=== PATIENT | female | born 1985 | race Caucasian/White ===

== ENCOUNTER 2016-11-18 13:10 | Emergency (ER) | payer OTHER ==
[~2016-11-18] VITALS: Ht 162.6 cm; Wt 72.7 kg
[~2016-11-18 13:10] MED LIST: ALBU8.5H2 INHALATION; BECL8.7A6 IH; DULO30CA PO; LEVO200T6 PO
[2016-11-18 13:11] VITALS: BP 113/75; RESP 15; O2SAT 95
--- NOTE | 2016-11-18 13:59 | ED.REPORT ---
HPI-Facial Injury Date of Service Nov 18, 2016 ED Provider: He Brock DO 31 year old female presents to the ER due to a recurrent nose bleed. Pt has had multiple nose bleeds in the past. Pt was seen last night at urgent care for this and had a packing placed. She was told to follow up with ENT, but has been unable to set up an ENT appointment. She now reports pain in the area of packing , R sided headache. Last night she had intermittent blood going down the back of the throat with no recurrence today. Pt denies fever, vomiting and facial swelling. Nursing Notes Stated Complaint: SWOLLEN FACE/NAUSEA Chief Complaint: ENT & Mouth Nursing Notes Reviewed: Yes Allergies: Coded Allergies: hydrocodone (Verified Adverse Reaction, Intermediate, "guaman", 11/18/16) Scheduled Amoxicillin/Clav K 875-125 mg (Augmentin 875-125 mg) 1 Each Tablet 1 TABLET PO BID Beclomethasone Dipropionate (Qvar) 8.7 Gm Aer.w.adap 8.7 GM IH BID Duloxetine (Cymbalta) 30 Mg Capsule.dr 30 MG PO DAILY Levothyroxine (Levothyroxine) 200 Mcg Tablet 225 MCG PO DAILY Scheduled PRN Albuterol HFA (Proair HFA) 8.5 Gm Hfa.aer.ad 2 PUFFS INHALATION Q4H PRN PRN For Shortness of Breath Tramadol (Tramadol) 50 Mg Tablet 50 MG PO Q4H PRN PRN For Pain General Time Seen by Provider: 13:58 Chief Complaint Nose bleed Hx Obtained From: Patient Arrived By: Walk-in Onset Occurred: Yesterday Location: : Nose Quality: Painful Severity: Current: Moderate Associated with: Reports: Headache, Denies: Shortness of breath, Vomiting Past Medical History Past Medical History Notes: PCP: Dr. Rodriguez Past Medical History GERD Hyperthyroid Anxiety Depression Past Surgical History Reports: Appendectomy, Hysterectomy Family History Noncontributory Smoking History Former Smoker Social History Alcohol Use: "Social" Drug Use: THC Other Social History: Local resident Ambulatory Status Independent Review of Systems Basic Review of Systems Respiratory: No shortness of breath, No cough, No wheeze Cardiovascular: No chest pain, No dyspnea on exertion, No orthopnea, No parox noct dyspnea, No palpitations Psychiatric: Normal thought content Constitutional: Denies: Fever Ears / Nose / Throat: Reports: Nose bleeding Neurologic: Reports: Headache Complete sys rev & neg: except as marked. GI: Reports: Nausea Physical Exam Initial Vital Signs Vital Signs (First) Date Time Temp Pulse Resp B/P Pulse Ox O2 Delivery O2 Flow Rate FiO2 11/18/16 13:11 36.4 77 15 113/75 95 Room Air Initial VS: Reviewed General/Constitutional: Well-developed, Well-nourished Respiratory: Breath sounds normal, Clear to auscultation, No respiratory distress Cardiovascular: Regular rate & rhythm, Heart sounds normal, Intact distal pulses Extremities: Vascular intact, Neuro intact Skin: Warm, Dry, No cyanosis Psychiatric: Mood/affect normal, Behavior normal, Normal thought content Head / Eyes: Atraumatic, Normocephalic, PERRL No blood in oropharynx. Face normal, normal symmetry. Neck: Supple, Full range of motion Neurologic: Oriented X3, Speech NL, No motor deficits Re-Eval/Medical Decision Med Decision/Clinical Course Med Decision/Clinical Course: Overall no persistent nosebleed and overall no complication such as toxic shock or soft tissue infection related to the nasal packing placement. It sounds generally like there was a miscommunication of appropriate follow-up, she will have follow-up in approximately 4-5 days with an ENT, this seems reasonable, will place her on Augmentin and tramadol in order to manage pain and prevent toxic shock syndrome. Strict return and follow-up precautions are given. Re-Evaluation/Progress : Time of Eval: 15:00 Re-Evaluation/Progress Note: Discussed plan for discharge and follow up. All questions addressed. Counseled Regarding: Diagnosis, Need for follow-up, When/why to return to ED Discharge & Departure Impression: Primary Impression: Epistaxis Disposition: Home Discharge Condition All VS Reviewed: Yes Condition: Improved Patient Instructions: Epistaxis (ED) Text / Dict Instructions: Take Augmentin and tramadol as prescribed. Use Tylenol around the clock. Call an ear nose and throat doctor today for follow-up within the next 3-4 days. Return to ER if you develop persistent nosebleeding, high fever, significant facial swelling, or other concerns. Referrals: Jean Pak MD, Tabitha MD [place] Attestation Portions of this note were transcribed by Maryann Guaman. I, (Dr. He Brock ) personally performed the history, physical exam and medical decision-making; I reviewed and confirmed the accuracy of the information in the transcribed note. Signed by: Maryann Guaman. Javed, 11/18/2016, [id number] copies to: Jean Pak MD; Rafaela Ramírez MD, Timothy S DO Nov 18, 2016 13:59 Maryann Guaman Nov 18, 2016 14:48
[2016-11-18] MEDS ORDERED: AMOX-366 PO (14:48)
[2016-11-18] MEDS ORDERED: TRAM50TA2 PO (14:48)
[2016-11-18 14:53] VITALS: BP 104/66; PULSE 62; RESP 16; O2SAT 100
[2016-11-18 15:02] VITALS: BP 104/66; PULSE 62; RESP 16; O2SAT 100
== END 2016-11-18 15:04 | disposition home or self-care (01) ==
LOC: SED 13:10
DX: R04.0 Epistaxis (principal); K21.9 Gastro-esophageal reflux disease without esophagitis; E05.90 Thyrotoxicosis, unspecified without thyrotoxic crisis or storm; Z87.891 Personal history of nicotine dependence; Z88.5 Allergy status to narcotic agent

== ENCOUNTER 2016-12-23 10:36 | Emergency (ER) | payer OTHER ==
[~2016-12-23] VITALS: Ht 162.6 cm; Wt 72.7 kg
[~2016-12-23 10:36] MED LIST changes: +AMOX-366 PO; +TRAM50TA2 PO
[2016-12-23 10:42] VITALS: BP 118/80; PULSE 76; RESP 16; O2SAT 100
--- NOTE | 2016-12-23 11:40 | ED.REPORT ---
HPI-Headache Date of Service December 23, 2016 ED Provider: Flaca Arriaza MD The patient is a 31 year old female with history of anxiety, depression, hyperthyroid, and GERD, who presents to the emergency department complaining of a right-sided headache that has been ongoing for the last 2 weeks. She thought her headache was initially a migraine. She was seen at urgent care at onset and was given medication. This temporarily improved her pain but then the pain returned 2 days later. When the pain returned it was different in character. It is not similar to her normal migraine pain. She describes the pain as "stabbing. " The pain is mostly behind her right ear but moves up to the right temporal region and down into the right side of her neck. The area behind her ear is tender to the touch and feels swollen. Her pain is more severe later in the day and at night. She has also noticed a photophobia, runny nose, mild cough, chills , and night sweats. She has not had similar symptoms in the past. She denies fever. The patient has also recently experienced diarrhea. She denies vomiting. Nursing Notes Stated Complaint: MIGRAINE,HEAD AND NECK PAIN Chief Complaint: Headache Nursing Notes Reviewed: Yes Allergies: Coded Allergies: ketorolac (Verified Allergy, Severe, 12/23/16) hydrocodone (Verified Adverse Reaction, Intermediate, "guaman", 11/18/16) Scheduled Amoxicillin (Amoxicillin) 500 Mg Tablet 500 MG PO TID Amoxicillin/Clav K 875-125 mg (Augmentin 875-125 mg) 1 Each Tablet 1 TABLET PO BID Beclomethasone Dipropionate (Qvar) 8.7 Gm Aer.w.adap 8.7 GM IH BID Duloxetine (Cymbalta) 30 Mg Capsule.dr 30 MG PO DAILY Levothyroxine (Levothyroxine) 200 Mcg Tablet 225 MCG PO DAILY Naratriptan (Naratriptan) 2.5 Mg Tablet 2.5 MG PO prn Scheduled PRN Albuterol HFA (Proair HFA) 8.5 Gm Hfa.aer.ad 2 PUFFS INHALATION Q4H PRN PRN For Shortness of Breath Tramadol (Tramadol) 50 Mg Tablet 50 MG PO Q4H PRN PRN For Pain oxyCODONE-Acetaminophen 5-325 mg (oxyCODONE-Acetaminophen 5-325 mg) 1 Each Tablet 1 TAB PO Q6H PRN PRN For Pain General Time Seen by MD: 11:39 Chief Complaint Headache Hx Obtained From: Patient Arrived By: Walk-in Sudden in Onset?: No Onset Occurred: More than a week ago... Symptom Duration: Constant Location: : Frontal right: Parietal right: Retro orbital: Temporal right Quality: Painful Radiation: : Neck, right lateral Severity: Current: Moderate Severity: Maximum: Severe Recent Healthcare: No recent hospitalization, Recent doctor visit Similar Sx Previous: No Past Medical History Past Medical History Notes: PCP: Dr. Rodriguez Past Medical History GERD Hyperthyroid Anxiety Depression Migraines Past Surgical History Reports: Appendectomy, Cholecystectomy, Hysterectomy Family History Noncontributory Smoking History Former Smoker Social History Alcohol Use: "Social" Drug Use: THC Other Social History: Good social support, , Local resident Ambulatory Status Independent Review of Systems Constitutional: Reports: Chills, Denies: Fever Eyes: Reports: Photophobia GI: Reports: Diarrhea, Denies: Vomiting Skin: Reports Diaphoresis Neurologic: Reports: Headache Complete sys rev & neg: except as marked. Respiratory: Reports: Non-productive cough (mild) Allergy / Immune: Reports: Rhinorrhea Physical Exam Initial Vital Signs Vital Signs (First) Date Time Temp Pulse Resp B/P Pulse Ox O2 Delivery O2 Flow Rate FiO2 12/23/16 10:42 37.2 76 16 118/80 100 Room Air Initial VS: Reviewed Respiratory: Breath sounds normal, Clear to auscultation, No respiratory distress Cardiovascular: Regular rate & rhythm, Heart sounds normal, Intact distal pulses Abdomen / GI: Soft, Non-tender, No guarding, No rebound, No distention Lymphatic: No lymphadenopathy Extremities: Vascular intact, Neuro intact, No swelling, No tenderness Skin: Warm, Dry, No cyanosis Psychiatric: Mood/affect normal, Behavior normal, Normal thought content General/Constitutional: Awake, Alert, Cooperative Head / Eyes: Atraumatic, Normocephalic, PERRL, EOMI Neck: No midline vertebral tend Right-sided anterior cervical lymphadenopathy that is tender. Neurologic: Oriented X3, Speech NL, No motor deficits, No sensory deficits, Cerebellar NL, Memory NL ENT: Airway patent, Mucous membranes moist, Tympanic membs NL, Ext aud canal NL , Mastoid area NL She has a large tender posterior auricular lymphnode on the right side. Interpretation & Diagnostics Lab Results Interpretation Result Diagram: 12/23/16 1222 12/23/16 1222 Test 12/23/16 12:22 White Blood Count 9.5th/mm3 (3.8-10.1) Red Blood Count 4.85mil/mm3 (3.90-5.20) Hemoglobin 14.3g/dL (12.0-15.6) Hematocrit 43.7% (35.0-46.0) Mean Corpuscular Volume 90.1fL (81-100) Mean Corpuscular Hemoglobin 29.5pg (27.0-35.0) Mean Corpuscular Hemoglobin Concent 32.7% (32.0-37.0) Red Cell Distribution Width 14.8% (12.3-15.4) Platelet Count 393bil/L (150-400) Neutrophils (%) (Auto) 56.6% (40-74) Lymphocytes (%) (Auto) 30.3% (14-46) Monocytes (%) (Auto) 8.2% (4-12) Eosinophils (%) (Auto) 4.1% (0-5) Basophils (%) (Auto) 0.5% (0-3) Sodium Level 142mEq/L (134-144) Potassium Level 3.6mEq/L (3.5-5.2) Chloride Level 101mEq/L (97-108) Carbon Dioxide Level 26mmol/L (18-29) Blood Urea Nitrogen 8mg/dL (6-20) Creatinine 0.65mg/dL (0.57-1.00) Estimat Glomerular Filtration Rate 152mL/min (>59) Glucose Level 76mg/dL (60-99) Calcium Level 9.8mg/dL (8.5-10.1) Magnesium Level 2.1mg/dL (1.6-2.6) Total Bilirubin 0.4mg/dL (0.0-1.2) Aspartate Amino Transf (AST/SGOT) 22U/L (0-50) Alanine Aminotransferase (ALT/SGPT) 15U/L (0-32) Alkaline Phosphatase 50U/L (25-150) Total Protein 7.9g/dL (6.4-8.4) Albumin 4.6g/dL (3.4-5.0) Lipase 57U/L (13-60) CT Head Interpretation IMPRESSION: 1. No acute intracranial abnormalities. 2. Clear mastoids. 3. Right ethmoid sinus disease. Dictated by: Ingris Paul M.D. on 12/23/2016 at 14:30 Study: Head CT no contrast Interpretation / Wet Read by: Interpret - Radiologist CT C-Spine Interpretation IMPRESSION: 1. Multiple subcentimeter cervical lymph nodes bilaterally, right greater than left. The palpable mass in the right neck corresponds to a prominent but still normal-sized lymph node. This finding is nonspecific and most likely reactive. Recommend clinical correlation and follow up. Dictated by: Ingris Paul M.D. on 12/23/2016 at 14:33 Study type: CT no contrast Interpretation / Wet Read by: Interpret - Radiologist Re-Eval/Medical Decision Source of Hx: Old records Re-Evaluation/Progress #1: Time of Eval: 13:00 Re-Evaluation/Progress Note: The patient is clearly having an allergic reaction up the area of her vein from the Toradol without respiratory issues at this point. Re-Evaluation/Progress #2: Time of Eval: 14:58 Re-Evaluation/Progress Note: Rechecked the patient. Discussed results, diagnosis, and plan for discharge. All questions were addressed. Counseled Regarding: Diagnosis, Lab results, Need for follow-up, When/why to return to ED Discharge & Departure Impression: Primary Impression: Ethmoid sinusitis Chronicity: acute Recurrence: not specified as recurrent Qualified Code: J01.20 - Acute ethmoidal sinusitis, unspecified Disposition: Home Discharge Condition All VS Reviewed: Yes Condition: Stable Patient Instructions: Sinusitis (ED) Additional Instructions: Thank you for entrusting us with your care today. Your CT does show evidence of ethmoid sinusitis on the right side. This explains your headache. I have written you for a prescription for Amoxicillin. Take this as prescribed for 14 days. Make sure to rest and drink plenty of fluids. Followup with your regular doctor in 1 week for re-evaluation. Seek care sooner for increased pain, visual changes, or any other new or worsening symptoms. Referrals: Rafaela Ramírez MD (PCP) Scribe Attestation Portions of this note were transcribed by Suad Donato. I, Dr. Arriaza personally performed the history, physical exam and medical decision-making; I reviewed and confirmed the accuracy of the information in the transcribed note. Signed by: Javed Dean, 12/23/2016 at 1515. copies to: Rafaela Ramírez MD, Shawna L MD December 23, 2016 11:40 Suad Donato December 23, 2016 11:42
[2016-12-23] MEDS ORDERED: 0.9% Sodium Chloride 1,000 ML IV ONE (12:02)
[2016-12-23] MEDS ORDERED: Ondansetron 2 mg/mL 2 mL Inj IVPUSH ONE (12:05)
[2016-12-23 12:36] LABS: BASOPHILS % (AUTO) 0.5 % (0-3); EOSINOPHILS % (AUTO) 4.1 % (0-5); MONOCYTES % (AUTO) 8.2 % (4-12); Mean Corpuscular Hemoglobin 29.5 pg (27.0-35.0); Mean Corpuscular Volume 90.1 fL (81-100); NEUTROPHILS % (AUTO) 56.6 % (40-74); Platelet Count 393 bil/L (150-400)
[2016-12-23 13:02] LABS: Magnesium 2.1 mg/dL (1.6-2.6)
[2016-12-23] MEDS ORDERED: MethylprednisoLONE Sodium Succinate 62.5 mg/mL 2 mL Inj IVPUSH ONE (13:10)
--- NOTE | 2016-12-23 14:34 | DRSVH ---
PROCEDURE: CT BRAIN WITHOUT CONTRAST ([id number]) INDICATIONS: severe headache TECHNIQUE: Noncontrast 4.5 mm thick angled axial sections acquired from the foramen magnum to the vertex, with c oronal reformats. COMPARISON: None. FINDINGS: Image quality: Excellent. CSF spaces: Basal cisterns are patent. No extra-axial fluid collections. Ventricles are normal in size and shape. Brain: No midline shift. No intracranial masses or hemorrhage. Almazan-white matter interface is norm al. Skull and face: Calvarium and visualized facial bones are intact, without suspicious lesions. Sinuses: Partial opacification of right ethmoid sinus. The mastoids are clear. IMPRESSION: 1. No acute intracranial abnormalities. 2. Clear mastoids. 3. Right ethmoid sinus disease. Dictated by: Ingris Paul M.D. on 12/23/2016 at 14:30 Approved by: Ingris Paul M.D. on 12/23/2016 at 14:32
--- NOTE | 2016-12-23 14:40 | DRSVH ---
PROCEDURE: CT NECK SOFT TISSUES WITH CONTRAST ([id number]) INDICATIONS: severe headache, Left neck/mastoid mass TECHNIQUE: After the administration of intravenous contrast, 3.0 mm axial sections acquired from the sella to th e aortic arch. Additional oblique axial 3.0 mm sections acquired through the pharynx. 3 mm thick co jad reformats were generated. For radiation dose reduction, the following was used: automated exp osure control. COMPARISON: None. FINDINGS: Image quality: Excellent. Lymph nodes: There are numerous subcentimeter cervical lymph nodes bilaterally, right greater than le ft. The palpable abnormality in the right neck corresponds to a 6 x 8 mm right cervical lymph node Vessels: Visualized vasculature appears patent. Neck spaces: The oropharynx, nasopharynx, and pharynx demonstrate no mucosal lesions. The vocal cor ds, false vocal cords, pyriform sinuses, epiglottis, vallecula, and tongue base all appear normal. E xtramucosal spaces appear unremarkable. Glands: The parotid and submandibular glands appear normal. Thyroid gland is normal. Miscellaneous: Visualized brain and orbits appear normal. Lung apices appear clear. Superficial so ft tissues appear normal. Bones: No suspicious bony lesions. Visualized sinuses and mastoids appear unremarkable. IMPRESSION: 1. Multiple subcentimeter cervical lymph nodes bilaterally, right greater than left. The palpable mas s in the right neck corresponds to a prominent but still normal-sized lymph node. This finding is non specific and most likely reactive. Recommend clinical correlation and follow up. Dictated by: Ingris Paul M.D. on 12/23/2016 at 14:33 Approved by: Ingirs Paul M.D. on 12/23/2016 at 14:39
[2016-12-23] MEDS ORDERED: NARA2.5T2 PO (15:08)
[2016-12-23] MEDS ORDERED: OXYC1TAB24 PO (15:08)
[2016-12-23] MEDS ORDERED: AMOX500T2 PO (15:08)
[2016-12-23 15:42] VITALS: BP 103/56; PULSE 75; RESP 20; O2SAT 95
== END 2016-12-23 15:42 | disposition home or self-care (01) ==
LOC: SED 10:36
DX: J01.20 Acute ethmoidal sinusitis, unspecified (principal); H53.149 Visual discomfort, unspecified; R19.7 Diarrhea, unspecified; K21.9 Gastro-esophageal reflux disease without esophagitis; E05.90 Thyrotoxicosis, unspecified without thyrotoxic crisis or storm; F32.9 Major depressive disorder, single episode, unspecified; Z87.891 Personal history of nicotine dependence; Z88.5 Allergy status to narcotic agent; Z88.8 Allergy status to other drugs, medicaments and biological substances
CPT/HCPCS: 36415; 70450; 70491; 80053; 83690; 83735; 85025; 96361; 96374; 96375; 99285; J1200; J1885; J2405; J2930; J7030; Q9967

== ENCOUNTER 2016-12-26 19:05 | Emergency (ER) | payer OTHER ==
[~2016-12-26] VITALS: Ht 162.6 cm; Wt 72.7 kg
[~2016-12-26 19:05] MED LIST changes: +AMOX500T2 PO; +NARA2.5T2 PO; +OXYC1TAB24 PO
[2016-12-26 19:20] VITALS: BP 104/78; PULSE 68; RESP 16; O2SAT 100
--- NOTE | 2016-12-26 21:13 | ED.REPORT ---
HPI-Headache Date of Service December 26, 2016 ED Provider: Matthew Aiden Patient is a 31 year old female with a hx of migraines, asthma, and hypothyroid who presents to the ED complaining of worsening headache. She was diagnosed with sinusitis and received a full work up on 12/23 but reports that she has not gotten better on Amoxicillin. Associated symptoms include nausea, vomiting, blurred vision, neck pain, unsteady gait, and diplopia. She denies numbness, weakness, runny nose, cough, ear pain, or any other symptoms She reports this pain does not feel like her migraine pain. She has been taking Percocet w/o relief, and in fact that the Percocet is causing nausea. Nursing Notes Stated Complaint: HEAD PAIN WORSE Chief Complaint: Headache Nursing Notes Reviewed: Yes Allergies: Coded Allergies: ketorolac (Verified Allergy, Severe, 12/23/16) sumatriptan (Verified Allergy, Mild, rash and swellling at the sight, 12/26) hydrocodone (Verified Adverse Reaction, Intermediate, "guaman", 11/18/16) Scheduled Amoxicillin (Amoxicillin) 500 Mg Tablet 500 MG PO TID Amoxicillin/Clav K 875-125 mg (Augmentin 875-125 mg) 1 Each Tablet 1 TABLET PO BID Beclomethasone Dipropionate (Qvar) 8.7 Gm Aer.w.adap 8.7 GM IH BID Duloxetine (Cymbalta) 30 Mg Capsule.dr 30 MG PO DAILY Levothyroxine (Levothyroxine) 200 Mcg Tablet 225 MCG PO DAILY Naratriptan (Naratriptan) 2.5 Mg Tablet 2.5 MG PO prn Scheduled PRN Albuterol HFA (Proair HFA) 8.5 Gm Hfa.aer.ad 2 PUFFS INHALATION Q4H PRN PRN For Shortness of Breath Prochlorperazine Maleate (Compazine Suppository) 25 Mg Supp.rect 25 MG RC Q8 PRN PRN For Nausea/Vomiting Tramadol (Tramadol) 50 Mg Tablet 50 MG PO Q4H PRN PRN For Pain oxyCODONE-Acetaminophen 5-325 mg (oxyCODONE-Acetaminophen 5-325 mg) 1 Each Tablet 1 TAB PO Q6H PRN PRN For Pain General Time Seen by MD: 21:12 Chief Complaint Headache Hx Obtained From: Patient Arrived By: Walk-in Sudden in Onset?: Yes Onset Occurred: More than a week ago... (2 weeks) Symptom Duration: Since onset Recent Healthcare: Recent doctor visit Risk-Headache )( SAH Risk Stratification No Coagulopathy, No Hypertension, No Polycystic kidney disease RF Statements: Risk factors reviewed )( IC Mass Risk Stratification No HIV RF Statements: Risk factors reviewed Past Medical History Past Medical History Notes: PCP: Dr. Rodriguez Past Medical History GERD Hyperthyroid Anxiety Depression Migraines Recent ethmoid sinusitis by CT Reports: Asthma Past Surgical History Reports: Appendectomy, Cholecystectomy, Hysterectomy Family History Noncontributory Smoking History Former Smoker Social History Alcohol Use: "Social" Drug Use: THC Other Social History: Good social support, , Local resident Ambulatory Status Independent Review of Systems Review of Systems Note: +unsteady gait Eyes: Reports: Blurred bilateral, Diplopia Ears / Nose / Throat: Denies: Earache bilateral GI: Reports: Nausea, Vomiting Musculoskeletal: Reports: Neck pain Neurologic: Reports: Headache, Denies: Numbness, Weakness Complete sys rev & neg: except as marked. Respiratory: Denies: Non-productive cough Allergy / Immune: Denies: Rhinorrhea Physical Exam Initial Vital Signs Vital Signs (First) Date Time Temp Pulse Resp B/P Pulse Ox O2 Delivery O2 Flow Rate FiO2 12/26/16 19:20 37.3 68 16 104/78 100 Room Air Initial VS: Reviewed Respiratory: Breath sounds normal, Clear to auscultation, No respiratory distress Cardiovascular: Regular rate & rhythm, Heart sounds normal Abdomen / GI: Soft, Non-tender Skin: Warm, Dry Psychiatric: Mood/affect normal, Behavior normal, Normal thought content General/Constitutional: Awake, Alert, Well developed Head / Eyes: Atraumatic, Normocephalic, PERRL Tender over right mastoid process (as before) Neck: Supple, Full range of motion Neurologic: Oriented X3, Speech NL, CN II - XII intact Interpretation & Diagnostics Lab Results Interpretation Result Diagram: 12/26/16214912/26/162149 Test 12/26/16 21:50 White Blood Count 10.2th/mm3 (3.8-10.1) Red Blood Count 4.93mil/mm3 (3.90-5.20) Hemoglobin 14.7g/dL (12.0-15.6) Hematocrit 44.1% (35.0-46.0) Mean Corpuscular Volume 89.5fL (81-100) Mean Corpuscular Hemoglobin 29.8pg (27.0-35.0) Mean Corpuscular Hemoglobin Concent 33.3% (32.0-37.0) Red Cell Distribution Width 15.1% (12.3-15.4) Platelet Count 451bil/L (150-400) Neutrophils (%) (Auto) 51.6% (40-74) Lymphocytes (%) (Auto) 34.3% (14-46) Monocytes (%) (Auto) 9.8% (4-12) Eosinophils (%) (Auto) 2.9% (0-5) Basophils (%) (Auto) 1.0% (0-3) Erythrocyte Sedimentation Rate 4mm/hr (0-32) Sodium Level 139mEq/L (134-144) Potassium Level 4.1mEq/L (3.5-5.2) Chloride Level 98mEq/L (97-108) Carbon Dioxide Level 27mmol/L (18-29) Blood Urea Nitrogen 6mg/dL (6-20) Creatinine 0.69mg/dL (0.57-1.00) Estimat Glomerular Filtration Rate 142mL/min (>59) Glucose Level 99mg/dL (60-99) Calcium Level 9.5mg/dL (8.5-10.1) Total Bilirubin 0.3mg/dL (0.0-1.2) Aspartate Amino Transf (AST/SGOT) 30U/L (0-50) Alanine Aminotransferase (ALT/SGPT) 18U/L (0-32) Alkaline Phosphatase 50U/L (25-150) C-Reactive Protein 0.1mg/dL (0.0-0.5) Total Protein 8.0g/dL (6.4-8.4) Albumin 4.6g/dL (3.4-5.0) CT Head Interpretation CT BRAIN: IMPRESSION: Minimal ethmoid sinus disease. No acute intracranial process Dictated by: Dl Shirley M.D. on 12/26/2016 at 21:41 Approved by: Dl Shirley M.D. on 12/26/2016 at 21:44 Study: Head CT no contrast Interpretation / Wet Read by: Interpret - Radiologist Re-Eval/Medical Decision Med Decision/Clinical Course 31-year-old with a migraine history and atypical headaches, the setting of ethmoid sinusitis, presents today somewhat worse, and complaining also of diplopia. Neuro exam is actually negative, but repeat scan was indicated with that symptom and is fortunately negative, with clearing of her prior sinus disease. There is still some minimal ethmoid sinusitis present. She is not of a fever does not of a stiff neck and has a benign exam at this point. No indication of meningitis. No indication of bleeding. She is improved after meds here and is discharged now in stable condition for follow-up with PCP. Persistent diplopia should prompt follow-up with her PCP and MRI. Compazine suppositories provided for additional nausea and headache relief. Re-Evaluation/Progress : Time of Eval: 23:08 )( Patient Status: Condition improved Re-Evaluation/Progress Note: Discussed plan for discharge. Patient understands and agrees with plan. All questions addressed at this time. Counseled Regarding: Diagnosis, Lab results, Need for follow-up, When/why to return to ED Discharge & Departure Shift Change Sign-Out Response to Therapy: Improved Impression: Primary Impression: Migraine Migraine type: unspecified Intractability: not intractable Additional Impressions: Ethmoid sinusitis Chronicity: acute Recurrence: not specified as recurrent Qualified Code: J01.20 - Acute ethmoidal sinusitis, unspecified Diplopia Disposition: Home Discharge Condition All VS Reviewed: Yes Condition: Improved Additional Instructions: Continue your migraine medicines as directed. You may also use Compazine as a suppository for nausea and for headache. I suggest that you stop using the Percocet, as it tends to cause a withdrawal headache in migraine sufferers. Follow-up with your doctor in the office. Return if you develop a high fever or worsening symptoms. Referrals: Rafaela Ramírez MD (PCP) Scribe Attestation Portions of this note were transcribed by Scott Azevedo. I, Dr. Castro personally performed the history, physical exam and medical decision-making; I reviewed and confirmed the accuracy of the information in the transcribed note. Signed by: Scott zAevedo 12/26/16, [id number] copies to: Rafaela Ramírez MD, Christopher W MD December 26, 2016 21:13 SCOTT AZEVEDO December 26, 2016 21:22
[2016-12-26] MEDS ORDERED: 0.9% Sodium Chloride 1,000 ML IV ONE (21:21)
[2016-12-26] MEDS ORDERED: Dexamethasone 10 mg/mL Inj IVPUSH ONE (21:25)
[2016-12-26] MEDS ORDERED: Haloperidol 5 mg/mL Inj IVPUSH ONE (21:25)
--- NOTE | 2016-12-26 21:46 | DRSVH ---
PROCEDURE: CT BRAIN WITHOUT CONTRAST ([id number]) INDICATIONS: diplopia, chris. migraine hx, different chris TECHNIQUE: Noncontrast 4.5 mm thick angled axial sections acquired from the foramen magnum to the vertex, with c oronal reformats. COMPARISON: None. FINDINGS: Image quality: Excellent. CSF spaces: Basal cisterns are patent. No extra-axial fluid collections. Ventricles are normal in size and shape. Brain: No midline shift. No intracranial masses or hemorrhage. Almazan-white matter interface is norm al. Skull and face: Calvarium and visualized facial bones are intact, without suspicious lesions. Sinuses: Minimal low attenuation seen within the ethmoid air cells bilaterally otherwise sinuses and mastoids are clear. IMPRESSION: Minimal ethmoid sinus disease. No acute intracranial process Dictated by: Dl Shirley M.D. on 12/26/2016 at 21:41 Approved by: Dl Shirley M.D. on 12/26/2016 at 21:44
[2016-12-26] MEDS ORDERED: Ondansetron 2 mg/mL 2 mL Inj IVPUSH ONE (22:10)
[2016-12-26 22:13] LABS: EOSINOPHILS % (AUTO) 2.9 % (0-5); MONOCYTES % (AUTO) 9.8 % (4-12); Mean Corpuscular Hemoglobin 29.8 pg (27.0-35.0); Mean Corpuscular Volume 89.5 fL (81-100); NEUTROPHILS % (AUTO) 51.6 % (40-74); Platelet Count 451 bil/L (150-400)
[2016-12-26 22:29] LABS: ERYTHROCYTE SEDIMENTATION RATE 4 mm/hr (0-32)
[2016-12-26] MEDS ORDERED: PROC25SU30 RC (23:05)
[2016-12-26 23:16] VITALS: BP 104/66; PULSE 72; RESP 18; O2SAT 100
== END 2016-12-26 23:17 | disposition home or self-care (01) ==
LOC: SED 19:05
DX: G43.909 Migraine, unspecified, not intractable, without status migrainosus (principal); J01.20 Acute ethmoidal sinusitis, unspecified; H53.2 Diplopia; J45.909 Unspecified asthma, uncomplicated; F32.9 Major depressive disorder, single episode, unspecified; K21.9 Gastro-esophageal reflux disease without esophagitis; E05.90 Thyrotoxicosis, unspecified without thyrotoxic crisis or storm; Z87.891 Personal history of nicotine dependence; Z88.5 Allergy status to narcotic agent; Z88.8 Allergy status to other drugs, medicaments and biological substances
CPT/HCPCS: 36415; 70450; 80053; 85025; 85651; 86140; 96361; 96374; 96375; 99285; J1100; J1200; J1630; J2405; J7030

== ENCOUNTER 2017-02-21 13:38 | Emergency (ER) | payer OTHER ==
[~2017-02-21] VITALS: Ht 162.6 cm; Wt 72.7 kg
[~2017-02-21 13:38] MED LIST changes: +PROC25SU30 RC
[2017-02-21 13:40] VITALS: BP 103/65; PULSE 76; RESP 16; O2SAT 100
--- NOTE | 2017-02-21 14:08 | ED.REPORT ---
HPI-General Illness Date of Service Feb 21, 2017 ED Provider: History of Present Illness: 32-year-old female here with multiple complaints. She started 10 mg twice a day of BuSpar on 02/10/2017. She does not know if some of these symptoms are related to this medication. She started the BuSpar for anxiety and it does not seem to be working. 1. She has been bruising more than usual since 02/10/2017. But She has been falling more than usual related to intermittent dizziness. 2. She has been having intermittent head pains for 1-1/2-2 months. She has been worked up for this, she has had 2 CAT scans of her head and has been diagnosed with ethmoid sinusitis. She took amoxicillin but this did not improve her symptoms. Her head pains are short-lived and intense and ice pick like. She will get 5-8 a day, every day. When the headache comes she will get dizzy and confused. She has had headaches every day for 2 months. No known trauma. She feels like her heart will "stop" for a second. This sensation is often noted wtih a quick second of lightheadedness, never syncope. 3. In the last 2 days she has been extremely tired and weak and having all over muscle pain and burning. It is worse in her back and upper extremities. She states she is short of breath even with short distances. He feels like she cannot get enough oxygen. She states her chest feels tight. She feels more confused in the last 2 days as well. 4. Yesterday she noted a bug bite on her left calf. The redness is increasing. It is painful not itchy. 5. She has a history of hypothyroidism. She has not checked her labs in months. She states they are never normal. She is on 150 g Synthroid. 6. She has a history of hepatomegaly from unknown origin. She has been screen for hepatitis and this always comes back negative. Her right upper quadrant is painful today. She has nausea and diarrhea as well. Food makes her symptoms worse. no Fever but she has sweating. Nursing Notes Stated Complaint: BRUISING/WEAKNESS Chief Complaint: General Complaint Nursing Notes Reviewed: Yes Allergies: Coded Allergies: ketorolac (Verified Allergy, Severe, 12/23/16) sumatriptan (Verified Allergy, Mild, rash and swellling at the sight, 12/26) hydrocodone (Verified Adverse Reaction, Intermediate, "guaman", 11/18/16) Scheduled Amoxicillin (Amoxicillin) 500 Mg Tablet 500 MG PO TID Amoxicillin/Clav K 875-125 mg (Augmentin 875-125 mg) 1 Each Tablet 1 TABLET PO BID Beclomethasone Dipropionate (Qvar) 8.7 Gm Aer.w.adap 8.7 GM IH BID Cephalexin (Keflex) 500 Mg Capsule 500 MG PO QID Duloxetine (Cymbalta) 30 Mg Capsule.dr 30 MG PO DAILY Levothyroxine (Levothyroxine) 200 Mcg Tablet 225 MCG PO DAILY Levothyroxine (Synthroid) 175 Mcg Tablet 175 MCG PO DAILY Naratriptan (Naratriptan) 2.5 Mg Tablet 2.5 MG PO prn Scheduled PRN Albuterol HFA (Proair HFA) 8.5 Gm Hfa.aer.ad 2 PUFFS INHALATION Q4H PRN PRN For Shortness of Breath Prochlorperazine Maleate (Compazine Suppository) 25 Mg Supp.rect 25 MG RC Q8 PRN PRN For Nausea/Vomiting Tramadol (Tramadol) 50 Mg Tablet 50 MG PO Q4H PRN PRN For Pain oxyCODONE-Acetaminophen 5-325 mg (oxyCODONE-Acetaminophen 5-325 mg) 1 Each Tablet 1 TAB PO Q6H PRN PRN For Pain General Time Seen by MD: 14:01 Chief Complaint Breathing problem, Abdominal pain, Altered mental status, Chest pain, Diarrhea, Headache, Multip medical complaints, Not feeling well Hx Obtained From: Patient Arrived By: Walk-in Sudden in Onset?: No Onset Occurred: Onset unknown Context of Onset: Medication reaction Symptom Duration: Intermittent Recent Healthcare: Recent doctor visit Similar Sx Previous: Yes Past Medical History Past Medical History Notes: PCP: Dr. Rodriguez Past Medical History GERD Hyperthyroid Anxiety Depression Migraines Recent ethmoid sinusitis by CT Reports: Asthma Past Surgical History Reports: Appendectomy, Cholecystectomy, Hysterectomy Family History Noncontributory Smoking History Former Smoker Social History Alcohol Use: "Social" Drug Use: THC Other Social History: Good social support, , Local resident Ambulatory Status Independent Review of Systems Full Review of Systems Constitutional: Reports: Chills, Fatigue, Fever, Lethargy, Malaise Eyes: Denies: Blurred bilateral, Discharge bilateral, Visual loss bilateral Ears / Nose / Throat: Denies: Earache bilateral, Hearing loss bilateral Respiratory: Reports: Dyspnea on exertion, Pleuritic pain, Denies: Non-productive cough Cardiovascular: Reports: Chest pain (tight), Dyspnea on exertion GI: Reports: Abdominal pain (ruq), Diarrhea, Nausea, Denies: Vomiting Female: Denies: Dysuria Musculoskeletal: Reports: Back pain (generalized body pain) Hematologic: Reports Bruising Skin: Reports Bruising, Reports Rash (LLE redness/pain) Neurologic: Reports: Confusion, Dizziness, Headache, Spinning sensation, Denies: Syncope Psychiatric: Reports: Anxiety, Confusion, Stress Complete sys rev & neg: except as marked. Physical Exam Vital Signs Vital Signs Date Time Temp Pulse Resp B/P Pulse Ox O2 Delivery O2 Flow Rate FiO2 02/21/17 20:09 37.1 70 16 107/32 100 Room Air 02/21/17 16:37 60 18 108/58 100 Room Air 02/21/17 13:40 36.8 76 16 103/65 100 Room Air Initial VS: Reviewed, Vital signs normal General/Constitutional: Awake, Alert, Well appearing Head / Eyes: Atraumatic, Normocephalic, PERRL, EOMI, No nystagmus, No periorbital redness, No periorbital swelling, No photophobia, No scleral icterus , Cornea clear ENT: Airway patent, Mucous membranes moist, Pharynx NL Neck: Atraumatic, Supple, No meningismus, Full range of motion, No adenopathy, No swelling, Non-tender, No midline vertebral tend, No masses Respiratory / Chest: Breath sounds NL, No respiratory distress, No rales, No rhonchi, No wheezing Cardiovascular: Heart rate NL, Regular rhythm, Heart sounds NL, Cap refill not delayed, Peripheral circulation NL Abdomen: Soft Tenderness/Guarding/Rebound: Positive: Tender LUQ... (Moderate), Tender epigastric Organomegaly / Mass / Hernia: Positive: Hepatomegaly Back: Inspection NL, Painless range of motion, Non-tender, No CVA tenderness Generalized tenderness of her entire back soft tissue. Generalized tenderness of her entire body. Anywhere I palpate she states it hurts. Rash / Lesion Notes: 3in diameter RLE calf erythema with central papule. tender. multiple bruises noted to arms and legs in various stages of healing. Neurologic: Oriented X3, Speech NL, No motor deficits, No sensory deficits, CN II - XII intact, Cerebellar NL, Memory NL, Gait NL Interpretation & Diagnostics Interpretation & Diagnostics: PROCEDURE: US ABDOMEN ([id number]) INDICATIONS: RUQ pain TECHNIQUE: Real-time scanning was performed of the abdominal and retroperitoneal organs, with image documentation. COMPARISON: None. FINDINGS: Liver: Liver is normal in size and homogeneous in echotexture. Gallbladder: Surgically absent. Biliary ducts: Intrahepatic bile ducts are non-dilated. Extrahepatic bile duct caliber measures 3 mm. Normal is 6-7 mm or less in diameter, or 10 mm or less post-cholecystectomy. Pancreas: Visualized portions of the pancreas are sonographically normal. Spleen: Spleen is normal in size and homogeneous in echotexture. Kidneys: Right kidney measures 11 cm long; left kidney measures 11.5 cm long. No hydronephrosis. Aorta: Visualized aorta is normal in caliber at less than 3 cm. Iliacs: Proximal common iliac arteries are normal in caliber at less than 2.5 cm. IVC: Intrahepatic inferior vena cava is patent. Miscellaneous: No free abdominal fluid. IMPRESSION: 1. Surgical absence of the gallbladder. 2. No acute intra-abdominal sonographic abnormality. Lab Results Interpretation Result Diagram: 02/21/17 1440 02/21/17 1440 Test 02/21/17 14:40 02/21/17 15:28 02/21/17 16:00 White Blood Count 11.2th/mm3 (3.8-10.1) Red Blood Count 4.86mil/mm3 (3.90-5.20) Hemoglobin 14.2g/dL (12.0-15.6) Hematocrit 43.7% (35.0-46.0) Mean Corpuscular Volume 89.9fL (81-100) Mean Corpuscular Hemoglobin 29.2pg (27.0-35.0) Mean Corpuscular Hemoglobin Concent 32.5% (32.0-37.0) Red Cell Distribution Width 14.6% (12.3-15.4) Platelet Count 373bil/L (150-400) Neutrophils (%) (Auto) 64.2% (40-74) Lymphocytes (%) (Auto) 23.6% (14-46) Monocytes (%) (Auto) 9.1% (4-12) Eosinophils (%) (Auto) 2.6% (0-5) Basophils (%) (Auto) 0.4% (0-3) Erythrocyte Sedimentation Rate 11mm/hr (0-32) Sodium Level 140mEq/L (134-144) Potassium Level 3.4mEq/L (3.5-5.2) Chloride Level 100mEq/L (97-108) Carbon Dioxide Level 22mmol/L (18-29) Blood Urea Nitrogen 9mg/dL (6-20) Creatinine 0.70mg/dL (0.57-1.00) Estimat Glomerular Filtration Rate 139mL/min (>59) Glucose Level 83mg/dL (60-99) Calcium Level 9.5mg/dL (8.5-10.1) Total Bilirubin 0.6mg/dL (0.0-1.2) Aspartate Amino Transf (AST/SGOT) 26U/L (0-50) Alanine Aminotransferase (ALT/SGPT) 11U/L (0-32) Alkaline Phosphatase 58U/L (25-150) Total Protein 8.1g/dL (6.4-8.4) Albumin 4.9g/dL (3.4-5.0) Lipase 44U/L (13-60) Thyroid Stimulating Hormone (TSH) 50.840uIU/mL (0.450-4.500) Urine Opiates Screen Negative Urine Methadone Screen Negative Urine Barbiturates Screen Negative Urine Amphetamines Screen Negative Urine Benzodiazepines Screen Negative Urine Cocaine Metabolite Screen Negative Urine Cannabinoids Screen Positive Prothrombin Time 9.9sec (8.1-12.5) Prothromb Time International Ratio 0.93ratio Troponin T < 0.010ug/L (0.0-0.011) X-Ray Chest Interpretation Chest Xray Interpretation: PROCEDURE: X-RAY CHEST ONE VIEW, PORTABLE ([id number]) INDICATIONS: CHEST PAIN TECHNIQUE: One view of the chest was acquired. COMPARISON: [facility], , CHEST 2VW, 02/07/2015, 13:08. FINDINGS: Surgical changes and devices: None. Lungs and pleura: No pleural effusions or pneumothorax. Lungs are clear. Mediastinum: Mediastinal contours appear normal. Heart size is normal. Bones and chest wall: No suspicious bony lesions. Overlying soft tissues appear unremarkable. IMPRESSION: 1. No acute cardiopulmonary disease. View: 1 view Re-Eval/Medical Decision Med Decision/Clinical Course 32-year-old female with multiple complaints. Plan for head pain will be as follows. She already has had 2 CAT scans not showing any reason for her head pain and confusion. She has been having these symptoms for 2 months. She has follow-up with her PCP regarding this issue. Recommended she get an outpatient MRI this is not needed today. She has no meningeal symptoms, she has full range of motion of her neck. She will return if her symptoms worsen. This difficult to differentiate if her symptoms are neurologically related or cardiac. To help differentiate this Holter monitor or event monitor was recommended. Follow with her PCP for referral to do this. For her cellulitis on her right lower extremity we will put her on Keflex. Reviewed her abdominal ultrasound and labs no acute findings reassured patient. No hepatomegaly noted today. Regarding her thyroid we will increase her dose and she will follow up with his PCP. Since her PCP has not been able to control her thyroid recommended she see an search marketing specialist and get a referral to do so. She will return immediately if her confusion or head symptoms worsens. Reassured her over her bruising symptoms. Discussed case with Dr. Arshad and she agrees patient can be followed up in the outpatient setting. TCA in rapid drug screen. check with pharmacy, benadryl can show up as TCA in UA Discharge & Departure Shift Change Sign-Out Laboratory Evaluation: Lab evaluation discussed Imaging Studies: Imaging discussed Procedures: Results discussed Response to Therapy: Improved Primary Impression: Cellulitis and abscess of lower extremity Additional Impressions: Head pain Headache type: other headache syndrome Qualified Code: G44.89 - Other headache syndrome Hypothyroid Hypothyroidism type: unspecified Qualified Code: E03.9 - Hypothyroidism, unspecified Abdominal pain, acute, right upper quadrant Anxiety Abnormal bruising Disposition: Home Discharge Condition All VS Reviewed: Yes Condition: Stable Patient Instructions: Cellulitis (ED), Hypothyroidism (ED) Additional Instructions: You were evaluated for multiple complaints today but there are no new or concerning findings found on our exam. We did discuss a few recommendations do an outpatient setting. 1. We increased year thyroid medication. It appears he had trouble managing this. it is recommended that you see an search marketing specialist for further management of this. If insurance is an issue may need to travel to [facility] to get this done. See her PCP for referral for further management. 2. For your head pain and mental symptoms, it is recommended to get an MRI in the outpatient setting. He has had 2 CAT scans which showed ethmoid sinusitis and resolving ethmoid sinusitis without any change in your condition. An MRI was not needed today but he should have one soon, scheduled this with your PCP. 3. It is unclear if your mental symptoms are caused by a cardiac etiology. It is recommended that you get an event monitor done in the outpatient setting. 4. You are being treated for a right leg cellulitis with Keflex. 5. Your chest x-ray and cardiac workup was normal today. 6. We evaluated you for the complaints of easily bruising, but she labs came back normal. Referrals: Rafaela Ramírez MD (PCP) EDSupervising Provider for APC: Joselyn Arshad MD copies to: Rafaela Ramírez MD, Linnea K [facility] Feb 21, 2017 14:08
[2017-02-21] MEDS ORDERED: 0.9% Sodium Chloride 1,000 ML IV ONE (14:40)
[2017-02-21] MEDS ORDERED: Ondansetron 2 mg/mL 2 mL Inj IVPUSH ONE (14:40)
[2017-02-21 14:55] LABS: BASOPHILS % (AUTO) 0.4 % (0-3); EOSINOPHILS % (AUTO) 2.6 % (0-5); MONOCYTES % (AUTO) 9.1 % (4-12); Mean Corpuscular Hemoglobin 29.2 pg (27.0-35.0); Mean Corpuscular Volume 89.9 fL (81-100); NEUTROPHILS % (AUTO) 64.2 % (40-74); Platelet Count 373 bil/L (150-400)
[2017-02-21 15:16] LABS: ERYTHROCYTE SEDIMENTATION RATE 11 mm/hr (0-32)
[2017-02-21 15:38] LABS: INR 0.93 ratio
--- NOTE | 2017-02-21 16:07 | DRSVH ---
PROCEDURE: X-RAY CHEST ONE VIEW, PORTABLE ([id number]) INDICATIONS: CHEST PAIN TECHNIQUE: One view of the chest was acquired. COMPARISON: [facility], CR, CHEST 2VW, 02/07/2015, 13:08. FINDINGS: Surgical changes and devices: None. Lungs and pleura: No pleural effusions or pneumothorax. Lungs are clear. Mediastinum: Mediastinal contours appear normal. Heart size is normal. Bones and chest wall: No suspicious bony lesions. Overlying soft tissues appear unremarkable. IMPRESSION: 1. No acute cardiopulmonary disease. Dictated by: Anoop Knox M.D. on 02/21/2017 at 16:05 Approved by: Anoop Knox M.D. on 02/21/2017 at 16:05
[2017-02-21 16:37] VITALS: BP 108/58; PULSE 60; RESP 18; O2SAT 100
--- NOTE | 2017-02-21 18:37 | DRSVH ---
PROCEDURE: US ABDOMEN ([id number]) INDICATIONS: RUQ pain TECHNIQUE: Real-time scanning was performed of the abdominal and retroperitoneal organs, with image documentatio n. COMPARISON: None. FINDINGS: Liver: Liver is normal in size and homogeneous in echotexture. Gallbladder: Surgically absent. Biliary ducts: Intrahepatic bile ducts are non-dilated. Extrahepatic bile duct caliber measures 3 m m. Normal is 6-7 mm or less in diameter, or 10 mm or less post-cholecystectomy. Pancreas: Visualized portions of the pancreas are sonographically normal. Spleen: Spleen is normal in size and homogeneous in echotexture. Kidneys: Right kidney measures 11 cm long; left kidney measures 11.5 cm long. No hydronephrosis. Aorta: Visualized aorta is normal in caliber at less than 3 cm. Iliacs: Proximal common iliac arteries are normal in caliber at less than 2.5 cm. IVC: Intrahepatic inferior vena cava is patent. Miscellaneous: No free abdominal fluid. IMPRESSION: 1. Surgical absence of the gallbladder. 2. No acute intra-abdominal sonographic abnormality. Dictated by: Anoop Knox M.D. on 02/21/2017 at 18:32 Approved by: Anoop Knox M.D. on 02/21/2017 at 18:35
[2017-02-21] MEDS ORDERED: CEPH-512 PO (19:58)
[2017-02-21] MEDS ORDERED: LEVO175T2 PO (19:59)
[2017-02-21 20:09] VITALS: BP 107/32; PULSE 70; RESP 16; O2SAT 100
== END 2017-02-21 20:09 | disposition home or self-care (01) ==
LOC: SED 13:38
DX: L03.115 Cellulitis of right lower limb (principal); G44.89 Other headache syndrome; E03.9 Hypothyroidism, unspecified; R10.11 Right upper quadrant pain; F41.9 Anxiety disorder, unspecified; R23.3 Spontaneous ecchymoses; K21.9 Gastro-esophageal reflux disease without esophagitis; Z87.891 Personal history of nicotine dependence; Z88.5 Allergy status to narcotic agent; Z88.8 Allergy status to other drugs, medicaments and biological substances; Z79.899 Other long term (current) drug therapy
CPT/HCPCS: 36415; 71010; 76700; 80053; 83690; 84443; 84484; 85025; 85610; 85651; 93005; 96361; 96374; 99285; G0463; G0480; J2405; J7030